=== PATIENT | female | born 1970 | race Caucasian/White ===

== ENCOUNTER 2017-10-26 09:55 | Day surgery (SDC) | payer BC, OTHER ==
[2017-10-26] MEDS ORDERED: Cyanocobalamin (Vitamin B12) 1,000 MCG/ML SDV IM ONE (11:00)
[2017-10-26] MEDS ORDERED: Glycopyrrolate 0.2 MG/ML 2 ML SDV IVPUSH ONE (11:00)
[2017-10-26] MEDS ORDERED: Lactated Ringers 1,000 ML IV SCH (11:00)
[2017-10-26] MEDS ORDERED: Propofol 200 MG/20 ML SDV ONE (12:00)
[2017-10-26] MEDS ORDERED: fentaNYL 100 MCG/2 ML SDV ONE (12:00)
[2017-10-26] MEDS ORDERED: Midazolam 1 MG/ML 2 ML SDV ONE (12:00)
[2017-10-26] MEDS ORDERED: MVI, Adult with Vitamin K 10 ML, Thiamine 100 MG, Chromium/Copper/Mang/Selen/Zn 1 ML in... IV ONE ×4 (12:00)
--- NOTE | 2017-10-31 07:53 | OR ---
DATE OF PROCEDURE: 10/26/2017 PREOPERATIVE DIAGNOSIS: Severe heartburn and aspiration, status post laparoscopic adjustable gastric band placement. POSTOPERATIVE DIAGNOSES: 1. Marked esophageal dilation with retained bile and food and fungal overgrowth above laparoscopic adjustable gastric band. 2. Mild antral gastritis. OPERATIVE PROCEDURE: Upper GI endoscopy with antral biopsies for CLOtest. ANESTHESIA: IV sedation. INDICATION FOR PROCEDURE: The patient is status post laparoscopic adjustable gastric band placement in 2008. Recently, she has had increasing problems with severe heartburn and intermittent aspiration of esophageal contents. She wakes up coughing at night and has been sleeping in a recliner to try to minimize those events. Presently, all of the fluid has been removed from the band. The plan is to proceed with an upper GI endoscopy with biopsies as indicated. Potential risks, including bleeding and perforation were discussed, and the patient wishes to proceed. DESCRIPTION OF THE PROCEDURE: The patient was taken to the operating room and placed in a left lateral decubitus position. IV sedation was administered, after which the upper GI endoscope was passed orally through the length of the esophagus and into the stomach with retroflexion view of the fundus, and thereafter, through the pyloric channel and into the proximal duodenum. Findings included some redness in hypopharynx and larynx. As one entered the esophagus, there was a diffuse esophageal dilation. Throughout the length of the esophagus, there was some scattered fungal overgrowth. In the distal half of the esophagus, there was retained fluid, which was largely clear, along with some scattered food particles, despite the patient having been n.p.o. for several hours. There is marked redness in the area of the esophagogastric junction and proximal stomach. The imprint of the band was present, but that area was widely open, i.e. there was no mechanical obstruction to the outlet of the esophagus. Within the stomach, there was some mild redness of the antrum, otherwise the gastric and duodenal exams were unremarkable. At this point, biopsies were obtained from the antrum and sent for CLOtest to assess the patient's present H. pylori status, and the scope was then withdrawn. As much of the fluid was removed from the distal esophagus as possible, and the patient was taken to the recovery room in satisfactory condition. 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 Her insurance carrier will be contacted regarding that issue. Charles Connor MD /[id number]
== END 2017-10-26 15:00 | disposition home or self-care (01) ==
LOC: JP.SDS 09:55
PROVIDERS: ATTEND Surgery
DX: R12 Heartburn (principal); K22.8 Other specified diseases of esophagus; K29.70 Gastritis, unspecified, without bleeding; Z98.84 Bariatric surgery status
CPT/HCPCS: 43239; 87081; J2250; J2704; J3010; J3411; J3420; J7120; J3490

== ENCOUNTER 2018-01-19 05:30 | Inpatient (IN) | payer OTHER ==
[2018-01-19] MEDS ORDERED: Scopolamine 1.5 MG Transdermal Patch TOP ONE (06:06)
[2018-01-19] MEDS ORDERED: Gabapentin 300 MG Cap PO ONE (06:06)
[2018-01-19] MEDS ORDERED: Acetaminophen 500 MG Tab PO ONE (06:06)
[2018-01-19] MEDS ORDERED: Celecoxib 200 MG Cap PO ONE (06:06)
[2018-01-19] MEDS ORDERED: Dextrose 5%-Lactated Ringers 1,000 ML IV SCH ×2 (06:15→12:30)
[2018-01-19] MEDS ORDERED: Propofol 200 MG/20 ML SDV ONE (07:05)
[2018-01-19] MEDS ORDERED: Succinylcholine 200 MG/10 ML MDV ONE (07:05)
[2018-01-19] MEDS ORDERED: Dexamethasone 4 MG/ML SDV ONE (07:05)
[2018-01-19] MEDS ORDERED: Rocuronium 50 MG/5 ML Vial ONE (07:05)
[2018-01-19] MEDS ORDERED: Neostigmine Methylsulfate 1 MG/ML 5 ML Syringe ONE (07:05)
[2018-01-19] MEDS ORDERED: Glycopyrrolate 0.2 MG/ML 5 ML MDV ONE (07:05)
[2018-01-19] MEDS ORDERED: Ondansetron 4 MG/2 ML SDV ONE (07:05)
[2018-01-19] MEDS ORDERED: cefOXitin 2 GM in Sodium Chloride 0.9% 50 ML IV ONE ×4 (07:15)
[2018-01-19] MEDS ORDERED: Ropivacaine 56 ML, Dexamethasone 8 MG, EPINEPHrine 0.4 MG, Sodium Chloride 0.9% 21.6 ML NERVRT SCH ×4 (07:30)
[2018-01-19] MEDS ORDERED: Lidocaine 2% 100 MG/5 ML Syringe IVPUSH ONE (07:30)
[2018-01-19] MEDS ORDERED: Ketamine 500 MG/5 ML MDV IV SCH (07:30)
[2018-01-19] MEDS ORDERED: Lidocaine 0.4%/D5W 2 GM/500 ML BAG IV SCH (07:30)
[2018-01-19] MEDS ORDERED: Labetalol 20 MG/4 ML Syringe ONE (08:03)
[2018-01-19] MEDS ORDERED: fentaNYL 250 MCG/5 ML SDV ONE (08:03)
[2018-01-19] MEDS: cefOXitin 2 GM Vial ONE ×2 (08:21→09:15)
[2018-01-19] MEDS ORDERED: Metoclopramide 10 MG/2 ML SDV IVPUSH PRN (13:00)
[2018-01-19] MEDS ORDERED: Labetalol 20 MG/4 ML Syringe IVPUSH PRN (13:00)
[2018-01-19] MEDS ORDERED: hydrOXYzine HCl 100 MG/2 ML SDV IM PRN (13:00)
[2018-01-19] MEDS ORDERED: diphenhydrAMINE 50 MG/ML SDV IVPUSH PRN (13:00)
[2018-01-19] MEDS ORDERED: Ondansetron 4 MG/2 ML SDV IVPUSH PRN (13:00)
[2018-01-19] MEDS: Acetaminophen Soln 650 MG/20.3 ML UD Cup PO SCH ×2 (13:49→19:40)
[2018-01-19] MEDS: Pantoprazole 40 MG Vial IVPUSH SCH (13:49)
[2018-01-19] MEDS: cefOXitin 2 GM in Sodium Chloride 0.9% 50 ML IV SCH ×2 (15:31→19:47)
[2018-01-19] MEDS: MVI, Adult with Vitamin K 10 ML, Thiamine 200 MG, Chromium/Copper/Mang/Selen/Zn 1 ML in... IV SCH ×4 (15:31)
[2018-01-19] MEDS: Gabapentin 250 MG/5 ML Solution ML 470 ML Bottle PO SCH ×2 (15:31→21:54)
[2018-01-19] MEDS: Heparin Sodium 5,000 Units/ML Vial SUBCUT SCH (18:10)
[2018-01-20] MEDS: Acetaminophen Soln 650 MG/20.3 ML UD Cup PO SCH ×4 (00:53→18:00)
[2018-01-20] MEDS: cefOXitin 2 GM in Sodium Chloride 0.9% 50 ML IV SCH (01:02)
[2018-01-20] MEDS ORDERED: Iopamidol 612 MG/ML 50 ML SDV PO PRN (03:29)
[2018-01-20] MEDS ORDERED: Iohexol 647 MG/ML 50 ML SDV PO PRN (04:07)
[2018-01-20] MEDS: Heparin Sodium 5,000 Units/ML Vial SUBCUT SCH ×2 (07:20→17:57)
[2018-01-20] MEDS ORDERED: oxyCODONE 5 MG Tab PO PRN (08:22)
[2018-01-20] MEDS ORDERED: Dextrose 5%-Lactated Ringers 1,000 ML IV SCH (08:30)
[2018-01-20] MEDS ORDERED: Furosemide 20 MG/2 ML VIAL IVPUSH ONE (09:00)
[2018-01-20] MEDS: DULoxetine 20 MG Cap PO SCH (09:13)
[2018-01-20] MEDS: Gabapentin 250 MG/5 ML Solution ML 470 ML Bottle PO SCH ×3 (09:13→21:52)
[2018-01-20] MEDS: FLUoxetine 10 MG Cap PO SCH (09:13)
[2018-01-20] MEDS: Celecoxib 200 MG Cap PO SCH (09:13)
[2018-01-20] MEDS: SCOPOLAMINE PATCH CHECK TOP SCH (09:14)
[2018-01-20] MEDS: Pantoprazole 40 MG Vial IVPUSH SCH (12:50)
[2018-01-20] MEDS: MVI, Adult with Vitamin K 10 ML, Thiamine 200 MG, Chromium/Copper/Mang/Selen/Zn 1 ML in... IV SCH ×4 (15:52)
[2018-01-21] MEDS: Acetaminophen Soln 650 MG/20.3 ML UD Cup PO SCH ×2 (01:08→07:27)
[2018-01-21] MEDS: Heparin Sodium 5,000 Units/ML Vial SUBCUT SCH (05:25)
[2018-01-21] MEDS: Celecoxib 200 MG Cap PO SCH (07:27)
[2018-01-21] MEDS ORDERED: Magnesium Hydroxide 400 MG/5 ML Susp 30 ML Cup PO ONE (09:00)
[2018-01-21] MEDS ORDERED: Cyanocobalamin (Vitamin B12) 1,000 MCG/ML SDV IM ONE (09:00)
[2018-01-21] MEDS: DULoxetine 20 MG Cap PO SCH (09:42)
[2018-01-21] MEDS: FLUoxetine 10 MG Cap PO SCH (09:42)
[2018-01-21] MEDS: SCOPOLAMINE PATCH CHECK TOP SCH (09:42)
[2018-01-21] MEDS: Gabapentin 250 MG/5 ML Solution ML 470 ML Bottle PO SCH (09:44)
--- NOTE | 2018-01-22 09:03 | CR ---
UGI wo KUB HISTORY: eval R -Y GBP FINDINGS: After administration of oral contrast, upright views were obtained. Post operative changes gastric bypass. Surgical drains in place. No evidence for leak. Contrast passes freely into proximal small bowel loops. IMPRESSION: No evidence for leak or obstruction.
--- NOTE | 2018-01-22 13:00 | OR ---
DATE OF PROCEDURE: 01/19/2018 PREOPERATIVE DIAGNOSES: Intolerance and inadequate weight loss associated with laparoscopic adjustable gastric band. POSTOPERATIVE DIAGNOSES: 1. Intolerance and inadequate weight loss associated with laparoscopic adjustable gastric band. 2. Mediastinal lipoma. OPERATIVE PROCEDURES: 1. Removal of laparoscopic adjustable gastric band system (83981). 2. Formation of Del-en-Y gastric bypass with long-limb gastroenterostomy (70121). 3. Excision of mediastinal lipoma (48170). ANESTHESIA: General. PRIME BROKER: Tricia Dawn PA-C. INDICATIONS FOR PROCEDURE: The patient presents status post laparoscopic adjustable gastric band placement with persistent intolerance to the band as well as an inadequate weight loss. The plan is to proceed with removal of band and conversion to Del-en-Y gastric bypass. Potential risks including bleeding, infection, leaks from various GI tract closures, problems with bowel obstruction over time, as well as the possibility of cardiopulmonary, septic, or hemorrhagic complications leading to were discussed, and the patient wishes to proceed. DETAILS OF PROCEDURE: The patient was taken to the operating room and placed in a supine position. After general endotracheal anesthesia was induced, she was converted to a lithotomy position, and the abdomen was prepped and draped. At 15 cm inferior and 5 cm left of the xiphoid process, a transverse incision was made and peritoneal cavity entered under direct vision with an Optiview trocar and inflated to 15 mmHg pressure with CO2. Laparoscope was then reinserted. No underlying trocar insertion site injuries were seen. Following this, 5 additional trocars were placed across the upper and mid abdomen, and general exploration was undertaken. The patient had some omental adhesions to the area where the band port tubing emerged from the abdominal wall. These were taken down with Harmonic scalpel. The port tubing was initially divided at a point just below the exit site of the abdomen at a point distal to the connection of the 2 portions of the port tubing, so as to avoid losing small segment upon subsequent removal of the port. Dissection around the band was then commenced with a combination of Harmonic scalpel and cautery dissection. Eventually, the band was freed up such that it could be divided and then removed from the pocket. The components of the band were then removed through the left lateral trocar site. The level of the band imprint was actually quite low and, given this, we elected then to create a more proximal pouch. Dissection behind the area just below the esophagogastric junction was then initiated after division of the peritoneum around the right side of that initially. As one dissected behind that area, the mediastinal lipoma emerged from below within the area between the crura. This was excised and eventually dissection continued across such that the proximal pouch could be formed. This was done with a series of KEVIN black loads. At this point, the small bowel was reconstructed. The omentum was divided in the midline up to the level of the transverse colon, and the small bowel was traced out 150 cm distal to that point, it was divided transversely with a KEVIN stapler, and then traced out additional 200 cm, where the [id number] enteroenterostomy was accomplished with an internal firing of the Endo-KEVIN 60-mm stapler. The common opening was then closed transversely with the same stapler, angles anastomosed, and the mesenteric defect closed with some 0 Ethibond stitch along with fibrin sealant. The Del limb easily then came up to the new proximal gastric pouch without tension. The anvil of a 25-mm EEA stapler was then attached to a [place] sump type tube. The latter was brought down through the mouth and taken out through a small opening in the gastric pouch, allowing the anvil likewise to be pulled down to within the gastric pouch. The divided end of the Del limb was then opened and main body of the EEA stapler passed several centimeters into the lumen of the small bowel, brought up the anvil and united with it, thus creating the gastrojejunostomy. Upon removal of the stapler, double donuts of mucosa were noted within it. The small bowel was closed off with a vascular staple line. Gastrojejunostomy was reinforced with some 3-0 Vicryl seromuscular stitch along with fibrin sealant. A leak test was accomplished with injection of 120 mL of air in the gastric pouch, while submerged within cefoxitin-containing saline solution. No leaks were identified. One Red-Briseno drain was then placed adjacent to the gastrojejunostomy and from there up into the splenic fossa and taken out the left lateral trocar site. Trocars were then sequentially removed and peritoneal cavity deflated. The incision was closed with 4-0 Vicryl skin stitch and drain affixed with some 4-0 Vicryl stitch as well. The patient was taken to the recovery room in a satisfactory condition. Physician industrial hire sales assistant, Tricia Dawn, played an essential role in assisting in this case, helping to position the patient, retract structures as needed, as well as suturing and cutting sutures when indicated. Her presence improved patient safety and decreased the operative time. Charles Connor MD /[id number]
--- NOTE | 2018-01-22 13:42 | PN ---
DATE OF SERVICE: 01/20/2018 SUBJECTIVE: The patient had temperature of 101 last night, but she clinically looks and it's come down in the 99 range this morning. This came down with pulmonary toilet. This might also be a reaction to something like fibrin sealant and such otherwise urine output has been good. Oral intake is satisfactory and upper GI x-ray looks good. We will back down on the IV rate today and then restart her pertinent oral medications. Maximize activity and work with pulmonary toilet. Charles Connor MD /[id number]
--- NOTE | 2018-01-22 13:51 | DISCH ---
FINAL DIAGNOSES: 1. Intolerance and inadequate weight loss, status post laparoscopic adjustable gastric band placement. 2. Mediastinal lipoma. 3. Bariatric surgery status. 4. History of depression. 5. Family history of lipomas with the patient having multiple lipomas. 6. Obstructive sleep apnea, on CPAP. 7. Osteoarthritis. 8. History of vitamin D deficiency. OPERATIVE PROCEDURE: This was done on 01/19, removal of laparoscopic adjustable gastric band system with formation of Del-en-Y gastric bypass with long limb gastroenterostomy and excision of mediastinal lipoma. SUMMARY: This is a 47-year-old, status post previous laparoscopic adjustable gastric band placement with inadequate weight loss as well as increasing intolerance to the band. On the day of admission, the patient had the band system removed and converted to a Del-en-Y gastric bypass along with mediastinal lipoma. On postop day 1, she had some fever, which cleared with increased pulmonary toilet and may have been related to allergy such as fibrin sealant used intraoperatively. After the first night, she was without any further fevers, oral intake has been good, and she will be discharged home. She will be continuing her usual home medications withholding the vitamins and other supplements until after the first appointment. The followup plan will be with Tricia Dawn at [facility] on 01/29/2018 at 11 a.m. She is instructed to stay on a step-2, otherwise liquid diet until the first appointment.
== END 2018-01-21 12:15 | disposition home or self-care (01) | DRG 327 ==
LOC: JP.SDSSCHI 05:30 → JP.SDS 05:30 → EDSTATUS 07:15 → JP.MS 09:45
PROVIDERS: ADMIT Surgery; ATTEND Surgery
PROC: 0DP64CZ Removal of Extraluminal Device from Stomach, Percutaneous Endoscopic Approach (ICD-10-PCS; principal; 2018-01-19)
PROC: 0D164ZA Bypass Stomach to Jejunum, Percutaneous Endoscopic Approach (ICD-10-PCS; principal; 2018-01-19)
DX: K95.09 Other complications of gastric band procedure (principal); Z68.41 Body mass index [BMI] 40.0-44.9, adult; D17.9 Benign lipomatous neoplasm, unspecified; F32.9 Major depressive disorder, single episode, unspecified; G47.33 Obstructive sleep apnea (adult) (pediatric); E55.9 Vitamin D deficiency, unspecified; R50.9 Fever, unspecified; K21.9 Gastro-esophageal reflux disease without esophagitis; E78.1 Pure hyperglyceridemia; D50.8 Other iron deficiency anemias; E66.01 Morbid (severe) obesity due to excess calories; M54.5 Low back pain; M15.9 Polyosteoarthritis, unspecified; E78.9 Disorder of lipoprotein metabolism, unspecified; Z90.710 Acquired absence of both cervix and uterus; Z88.1 Allergy status to other antibiotic agents; Z88.8 Allergy status to other drugs, medicaments and biological substances; Z79.899 Other long term (current) drug therapy
CPT/HCPCS: 36415; 74240; 74240-26; 82962; 86850; 86900; 86901; 94762; A9270-GY; C9113; J0171; J0330; J0694; J1100; J1644; J1940; J2001; J2405; J2704; J2710; J2795; J3010; J3411; J3420; J3490; J7030; J7042; J7050; Q9967